=== PATIENT | male | born 1955 | race Caucasian/White ===

== ENCOUNTER → 2017-04-18 | Emergency (ER) | payer OTHER ==
[~2017-04-18] VITALS: Ht 175.3 cm; Wt 81.6 kg
[~2017-04-18] MED LIST: AMBIEN5 MG; CLONAZEPAM0.5 M1; OMEPRAZOLE20 M1; PEPCID20 MG; ZOCOR20 MG
== END | disposition home or self-care (01) ==
LOC: ER 18:41
DX: S20.212A Contusion of left front wall of thorax, initial encounter (principal); S60.512A Abrasion of left hand, initial encounter; W22.8XXA Striking against or struck by other objects, initial encounter; Y93.89 Activity, other specified; Y92.89 Other specified places as the place of occurrence of the external cause; Y99.8 Other external cause status